=== PATIENT | female | born 1990 | race Caucasian/White ===

== ENCOUNTER 2017-05-30 14:21 | Emergency (ER) | payer OTHER ==
[~2017-05-30] VITALS: Ht 162.6 cm; Wt 68.2 kg
[~2017-05-30 14:21] MED LIST: ALPR0.5T PO; LORA0.5T PO
[2017-05-30 14:26] VITALS: BP 103/61; PULSE 114; RESP 22; O2SAT 98
--- NOTE | 2017-05-30 14:41 | ED.REPORT ---
HPI-Extremity Problem Lower Date of Service May 30, 2017 ED Provider: Blas Nunes PAC History of Present Illness: 26yo female was moving couch at home and accidently dropped on L foot just prior to arrival. Pain dorsal L foot, unable to bear weight. Nursing Notes Stated Complaint: LEFT FOOT INJURY Chief Complaint: Extremity Trauma Nursing Notes Reviewed: Yes Allergies: Coded Allergies: acetaminophen (Verified Allergy, Unknown, rash, vomiting, 04/17/15) hydrocodone bitartrate (Verified Allergy, Unknown, rash, vomiting, 04/17/15 ) Scheduled PRN Alprazolam (Xanax) 0.5 Mg Tablet 0.5 MG PO Q6-8H PRN PRN For Anxiety Lorazepam (Lorazepam) 0.5 Mg Tablet Unknown Dose PO PRN PRN PRN For Insomnia General Time Seen by MD: 14:32 Chief Complaint Foot injury left Hx Obtained From: Patient Arrived By: Wheelchair Onset Occurred: Just prior to arrival Symptom Duration: Since onset Caused by: Accidental, Blunt injury Context: Occurred at: Home injury Location: : Foot left Quality: Painful, Sharp Severity: Current: Severe Severity: Maximum: Severe Pertinent Negative: Pt denies other symptoms Exacerbated by: Range of motion, Movement Relieved by: Rest Similar Sx Previous: No Risk-Extremity Prob Lower Well's Criteria for DVT Well's DVT Score: 0 pts (low risk 5%) Past Medical History Past Medical History Bipolar disorder PTSD Anxiety Depression Past Surgical History None reported Family History 2 of her children have Smoking History Current Every Day Smoker, Heavy Tobacco Smoker Social History Alcohol Use: Denies alcohol use Drug Use: Denies drug use Ambulatory Status Independent Review of Systems Constitutional: Denies: Chills, Fever Musculoskeletal: Reports: Extremity pain, Extremity swelling Respiratory: Denies: Shortness of breath Cardiovascular: Denies: Chest pain GI: Denies: Abdominal pain Physical Exam Physical Exam Notes: elevated pulse noted Initial Vital Signs Vital Signs (First) Date Time Temp Pulse Resp B/P Pulse Ox O2 Delivery O2 Flow Rate FiO2 05/30/17 14:26 37.1 114 22 103/61 98 Room Air Initial VS: Reviewed Left Ankle: Negative: Swelling present..., Tenderness present... Left Foot: Positive: Swelling present... (Mild), Tenderness present... ( Moderate), Negative: Neuro deficit present Joint above & below: affected area is NL. General/Constitutional: Awake, Alert Distress / Hydration: Positive: Distress mild Respiratory / Chest: Breath sounds NL, Breath sounds = bilat, No respiratory distress Cardiovascular: Regular rhythm, Heart sounds NL Heart Rate / Rhythm: Positive: Tachycardia Interpretation & Diagnostics X-Ray Interpretation Xray Interpretation: PROCEDURE: X-RAY LEFT FOOT COMPLETE, MINIMUM THREE VIEWS ([id number]) INDICATIONS: pain TECHNIQUE: 3 views of the foot were acquired. COMPARISON: None. FINDINGS: Bones: No fractures or dislocations. No suspicious bony lesions. Soft tissues: No tibiotalar joint effusion. Achilles tendon appears normal. IMPRESSION: No acute fractures or dislocations. Dictated by: Bhupinder Bush M.D. on 05/30/2017 at 15:08 Approved by: Bhupinder Bush M.D. on 05/30/2017 at 15:08 Re-Eval/Medical Decision Med Decision/Clinical Course L foot contusion, no fracture. Will treat with post-op shoe and crutches, sparing use of Tramadol. S/s for follow up discussed. Pt. acknowledged understanding of treatment plan. Differential Diagnosis: Positive: Contusion Counseled Regarding: Diagnosis, Lab results, Need for follow-up, When/why to return to ED Discharge & Departure Impression: Primary Impression: Contusion of left foot Encounter type: initial encounter Qualified Code: S90.32XA - Contusion of left foot, initial encounter Disposition: Home Patient Instructions: Contusions in Adults (ED) Additional Instructions: Use crutches and post-op shoe for 5 days. Take Tramadol sparingly for acute L foot pain, use Advil as needed for less acute pain. Follow up if not improving, return to ER if anything worsens. Referrals: [facility]ising Provider for APC: Mayo Jean MD, Christopher R PAC May 30, 2017 14:40
--- NOTE | 2017-05-30 15:10 | DRSVH ---
PROCEDURE: X-RAY LEFT FOOT COMPLETE, MINIMUM THREE VIEWS ([id number]) INDICATIONS: pain TECHNIQUE: 3 views of the foot were acquired. COMPARISON: None. FINDINGS: Bones: No fractures or dislocations. No suspicious bony lesions. Soft tissues: No tibiotalar joint effusion. Achilles tendon appears normal. IMPRESSION: No acute fractures or dislocations. Dictated by: Bhupinder Bush M.D. on 05/30/2017 at 15:08 Approved by: Bhupinder Bush M.D. on 05/30/2017 at 15:08
[2017-05-30] MEDS ORDERED: TRAM50TA2 PO (16:08)
[2017-05-30 16:20] VITALS: BP 115/80; PULSE 80; RESP 20; O2SAT 99
== END 2017-05-30 16:20 | disposition home or self-care (01) ==
LOC: SED 14:21
DX: S90.32XA Contusion of left foot, initial encounter (principal); W20.8XXA Other cause of strike by thrown, projected or falling object, initial encounter; Y93.89 Activity, other specified; Y99.8 Other external cause status; Y92.018 Other place in single-family (private) house as the place of occurrence of the external cause; F17.200 Nicotine dependence, unspecified, uncomplicated; F43.10 Post-traumatic stress disorder, unspecified; F41.9 Anxiety disorder, unspecified; Z88.6 Allergy status to analgesic agent; Z88.5 Allergy status to narcotic agent

== ENCOUNTER 2017-06-05 19:30 | Emergency (ER) | payer OTHER ==
[~2017-06-05] VITALS: Ht 162.6 cm; Wt 68.2 kg
[~2017-06-05 19:30] MED LIST changes: +TRAM50TA2 PO
[2017-06-05 19:46] VITALS: BP 120/77; PULSE 79; RESP 21; O2SAT 99
--- NOTE | 2017-06-05 20:04 | ED.REPORT ---
HPI-Overdose/Alcohol Toxicity Date of Service Jun 05, 2017 ED Provider: Russell Duque MD Patient is a 26 year old female with a hx of PTSD and depression who presents to the ED s/p taking THC, Adderall (2.5 pills), Clonazepam (2 pills), and Franc intermittently within the last 24 hours. When asked if it was a suicide attempt she states it was "to not feel anything anymore." Associated symptoms include anxiety and suicidal ideation. She states "everything in my life is crumbling and everything triggers me. I try to focus but I can't focus and I can't comprehend anything that happening around me anymore and now I'm starting to rage out where everything pisses me off". She denies homicidal ideation, hallucinations, or any other symptoms. She feels overwhelmed and would like to go to [place]. She has inflicted self-harm previously and has tried to overdose on Heroin. Within the last few years she has lost her twins, been to alf, and had her daughter taken away from her. Nursing Notes Stated Complaint: DEPRESSION Chief Complaint: Substance Abuse Nursing Notes Reviewed: Yes Allergies: Coded Allergies: acetaminophen (Verified Allergy, Unknown, rash, vomiting, 06/05/17) hydrocodone bitartrate (Verified Allergy, Unknown, rash, vomiting, 06/05/17) Scheduled PRN Alprazolam (Xanax) 0.5 Mg Tablet 0.5 MG PO Q6-8H PRN PRN For Anxiety Lorazepam (Lorazepam) 0.5 Mg Tablet Unknown Dose PO PRN PRN PRN For Insomnia Tramadol (Tramadol) 50 Mg Tablet 50 MG PO TID PRN PRN For Pain General Time Seen by Provider: 20:03 Chief Complaint Intoxicated, illicit drug Modifying Factors: No vomiting post-ingest Hx Obtained From: Patient Arrived By: Walk-in Similar Sx Previous: Yes Risk-Overdose/Alcohol Tox )( Suicide Risk Stratification : Alcohol use: Previous attempt: Prior psych admission: Substance abuse RF Statements: Risk factors reviewed Past Medical History Past Medical History Bipolar disorder PTSD Anxiety Depression Seizures Past Surgical History R ovary removed Family History 2 of her children have Smoking History Current Every Day Smoker, Heavy Tobacco Smoker Social History Previous suicide attempts Alcohol Use: Denies alcohol use Drug Use: THC, Other Ambulatory Status Independent Review of Systems Psychiatric: Reports: Anxiety, Depression, Suicidal ideation, Denies: Hallucinations, auditory, Hallucinations, visual, Homicidal ideation Complete sys rev & neg: except as marked. Physical Exam Initial Vital Signs Vital Signs (First) Date Time Temp Pulse Resp B/P Pulse Ox O2 Delivery O2 Flow Rate FiO2 06/05/17 19:46 36.8 79 21 120/77 99 Room Air Initial VS: Reviewed, Vital signs normal Head / Eyes: Atraumatic, Normocephalic Neck: Full range of motion Skin: Warm, Dry General/Constitutional: Awake, Alert Respiratory / Chest: Breath sounds NL, Breath sounds = bilat, No respiratory distress Cardiovascular: Heart rate NL, Regular rhythm, Heart sounds NL Abdomen: Soft, Non-tender Neurologic: Oriented X3, Speech NL GCS 15 Psychiatric: No hallucinations Approriate speech, tearful Interpretation & Diagnostics Lab Results Interpretation Result Diagram: 06/06/17 0053 06/06/17 0053 Test 06/05/17 20:44 06/06/17 00:53 06/06/17 00:54 Hold Urine Received (Received) White Blood Count 8.3th/mm3 (3.8-10.1) Red Blood Count 4.04mil/mm3 (3.90-5.20) Hemoglobin 11.7g/dL (12.0-15.6) Hematocrit 35.7% (35.0-46.0) Mean Corpuscular Volume 88.4fL (81-100) Mean Corpuscular Hemoglobin 29.0pg (27.0-35.0) Mean Corpuscular Hemoglobin Concent 32.8% (32.0-37.0) Red Cell Distribution Width 17.1% (12.3-15.4) Platelet Count 324bil/L (150-400) Sodium Level 137mEq/L (134-144) Potassium Level 3.5mEq/L (3.5-5.2) Chloride Level 101mEq/L (97-108) Carbon Dioxide Level 21mmol/L (18-29) Blood Urea Nitrogen 14mg/dL (6-20) Creatinine 0.65mg/dL (0.57-1.00) Estimat Glomerular Filtration Rate 159mL/min (>59) Glucose Level 97mg/dL (60-99) Calcium Level 9.0mg/dL (8.5-10.1) Total Bilirubin 0.2mg/dL (0.0-1.2) Aspartate Amino Transf (AST/SGOT) 13U/L (0-50) Alanine Aminotransferase (ALT/SGPT) 11U/L (0-32) Alkaline Phosphatase 53U/L (25-150) Total Protein 6.8g/dL (6.4-8.4) Albumin 4.0g/dL (3.4-5.0) Salicylates Level < 3.0ug/mL (30-250) Acetaminophen Level < 15.0ug/mL Rx (10-25) Alcohols < 10mg/dL (0-10) Hold Stern Top Tube Received (Received) ECG Interpretation ECG Interpretation: Sinus rate [address], T changes Time: 20:11 Interpreted by: ED physician Re-Eval/Medical Decision Med Decision/Clinical Course 26-year-old female history of PTSD presented requesting psychiatric evaluation. He reports she took several pills over the last 24 hours including franc, 2 clonazepam, 2 adderall. Triage reported that she had said she was trying to hurt herself. She tells me that she was not trying to hurt herself. She tells me she has no suicidal ideation or homicidal ideation but she would like to be transferred to [place] for her PTSD. DELIVERY AND INSTALLATION SUBCONTRACTOR evaluate the patient who thought she should be reevaluated in the morning. Transferred care to Dr. Grimes at shift change. Re-Evaluation/Progress : Time of Eval: 21:30 )( Re-Eval Psychiatric: No danger to others Re-Evaluation/Progress Note: Discussed plan to stay in ED for evaluation in the morning. Patient understands and agrees with plan. All questions addressed at this time. Counseled Regarding: Diagnosis Discharge & Departure Shift Change Sign-Out Patient Care Transferred: Yes Discussed Complaint(s): Yes Laboratory Evaluation: Ordered, not yet done Additonal Information: Transfer of care to Dr. Grimes at 0300 Impression: Primary Impression: Depression Depression Type: unspecified Qualified Code: F32.9 - Major depressive disorder, single episode, unspecified Additional Impression: Substance abuse )( Condition at Discharge: No danger to others Referrals: NOPCP (PCP) Care Transferred to: Transfer of care to Dr. Grimes Care Transferred at: 03:00 Scribe Attestation Portions of this note were transcribed by Ameena Ulrich. I, Dr. Duque personally performed the history, physical exam and medical decision-making; I reviewed and confirmed the accuracy of the information in the transcribed note. Signed by: Ameena Ulrich 06/06/17, 0119 Russell Duque MD Jun 05, 2017 20:04 AMEENA ULRICH Jun 05, 2017 20:19
[2017-06-05 20:26] VITALS: BP 118/62; RESP 21; O2SAT 98
[2017-06-06 00:59] LABS: Mean Corpuscular Volume 88.4 fL (81-100)
[2017-06-06 03:45] VITALS: BP 101/50; PULSE 58; RESP 16; O2SAT 98
[2017-06-06 10:15] VITALS: BP 101/40; PULSE 50; RESP 12; O2SAT 98
[2017-06-06 12:45] VITALS: BP 134/39; PULSE 59; RESP 16; O2SAT 99
--- NOTE | 2017-06-06 17:49 | NUR ---
ED STOCK CRANE OPERATOR note: D/A: Pt held overnight due to concern for intoxication after being evaluated by STOCK CRANE OPERATOR. Pt confirms previous evaluation, denying any suicidality, homicidality or perceptual disturbances. Pt continues to report sleep disruption, despite sleeping through the night in the ED. STOCK CRANE OPERATOR discussed outpatient follow up and assistance in arranging and keeping those appointments, however she declined these referencing a missed court date which occurred 06/05 which will now require pt to serve long-term time. Pt would prefer to transfer to [facility]. STOCK CRANE OPERATOR contacted [facility] who do not have current beds available. When hearing this pt initially refused to leave the ED as she felt she would use illicit substances if she discharged. STOCK CRANE OPERATOR offered to process through detox options and substance use treatment options however pt refused and stated that she wanted her cell phone and if she were not to be admitted she would then go use at discharge. Pt continued to deny suicidality throughout discharge. P: Pt does not meet medical criteria for admission to a psychiatric unit and was offered outpatient resources but refused these. There is concern for secondary gain as she missed a court date on 06/05 and believes she will be required to go to long-term if she is discharged. Pt does not appear imminently dangerous to herself or others secondary to a mental illness. AKSHAT Dominique
== END 2017-06-06 12:40 | disposition home or self-care (01) ==
LOC: SED 19:30
DX: F33.2 Major depressive disorder, recurrent severe without psychotic features (principal); F43.10 Post-traumatic stress disorder, unspecified; F41.9 Anxiety disorder, unspecified; F19.10 Other psychoactive substance abuse, uncomplicated; F15.10 Other stimulant abuse, uncomplicated; F12.10 Cannabis abuse, uncomplicated; F17.210 Nicotine dependence, cigarettes, uncomplicated; Z90.721 Acquired absence of ovaries, unilateral; Z88.5 Allergy status to narcotic agent; Z88.6 Allergy status to analgesic agent
CPT/HCPCS: 36415; 80053; 81025; 82075; 85027; 93005; 99284; G0480